=== PATIENT | female | born 1935 | race Two or more races ===

== ENCOUNTER 2016-05-26 08:29 | Emergency (ER) | payer MEDICAID ==
[~2016-05-26] VITALS: Ht 160 cm; Wt 67.1 kg
[2016-05-26 08:42] VITALS: BP 134/84
[2016-05-26] MEDS ORDERED: LIDOCAINE 1%-EPI 1:100,000 20 ML VIAL ONE (09:02)
[2016-05-26] MEDS ORDERED: LIDOCAINE 1%-EPI 1:100,000 20 ML VIAL TP ONE (09:30)
[2016-05-26] MEDS ORDERED: TDAP [DIPH/PERTUSSIS/TET] 0.5 ML VIAL IM ONE ×2 (09:41→10:00)
== END 2016-05-26 09:53 | disposition home or self-care (01) ==
LOC: ER 08:31
DX: S61.211A Laceration without foreign body of left index finger without damage to nail, initial encounter (principal); K21.9 Gastro-esophageal reflux disease without esophagitis; I10 Essential (primary) hypertension; E11.9 Type 2 diabetes mellitus without complications; W26.0XXA Contact with knife, initial encounter; Y93.89 Activity, other specified; Y92.000 Kitchen of unspecified non-institutional (private) residence as the place of occurrence of the external cause; Y99.9 Unspecified external cause status
CPT/HCPCS: 90715; A4606; A6402; A6403; J3490; Z7610

== ENCOUNTER 2019-03-15 09:00 | Inpatient (IN) | payer MEDICARE, MEDICAID ==
[~2019-03-15] VITALS: Ht 154.9 cm; Wt 63.5 kg
--- NOTE | 2019-03-15 09:10 | NUR ---
L SIDED CHEST PAIN AND R ARM PAIN SINCE LAST NIGHT. PATIENT A/OX4, SON AT BEDSIDE FOR TRANSLATION, CHANGED INTO GOWN, ATTACHED TO THE ASSOCIATE BIOLOGICAL SALES. NO DISTRESS NOTED.
--- NOTE | 2019-03-15 09:15 | NUR ---
DR. LAMB AT BEDSIDE FOR EVAL.
[2019-03-15 09:27] LABS: BASOPHILS # (AUTO) 0.1 /CMM (0.0-0.2); BASOPHILS % (AUTO) 0.9 % (0.0-2.0); EOSINOPHILS % (AUTO) 1.9 % (0.0-6.0); HEMATOCRIT 33 % (33-45); LYMPHOCYTES # (AUTO) 0.8 /CMM (0.8-4.8); LYMPHOCYTES % (AUTO) 10.8 % (20.0-44.0); MEAN CORPUSCULAR HGB CONC 34 g/dl (31.0-36.0); MEAN CORPUSCULAR VOLUME 92 fL (82-100); MONOCYTES # (AUTO) 0.4 /CMM (0.1-1.30); MONOCYTES % (AUTO) 5.4 % (2.0-12.0); NEUTROPHILS # (AUTO) 6.2 /CMM (1.8-8.9); PLATELET COUNT (AUTO) 191 /CMM (150-450); RED BLOOD CELL COUNT(AUTO) 3.56 MIL/uL (4.0-5.2); WHITE BLOOD COUNT (AUTO) 7.6 K/uL (4.3-11.0)
[2019-03-15 09:36] LABS: CALCIUM, SERUM 8.7 mg/dL (8.5-10.1); CARBON DIOXIDE 26 mmol/L (21-32); CHLORIDE 102 mmol/L (98-107); CREATININE 0.9 mg/dL (0.6-1.3); GLUCOSE 249 mg/dL (74-106); POTASSIUM 4.2 mmol/L (3.5-5.1); SODIUM SERUM 139 mmol/L (136-145); UREA NITROGEN, BLOOD 15 mg/dL (7-18)
[2019-03-15 09:42] LABS: ALANINE AMINOTRANSFERASE 90 U/L (12-78); ALBUMIN 3.2 g/dL (3.4-5.0); ALKALINE PHOSPHATASE 118 U/L (46-116); ASPARTATE AMINOTRANSFERASE 37 U/L (15-37); BILIRUBIN,DIRECT 0.3 mg/dL (0.0-0.2); BILIRUBIN,TOTAL 1.1 mg/dL (0.2-1.0)
--- NOTE | 2019-03-15 10:33 | NUR ---
PAGED DR. PINTO
--- NOTE | 2019-03-15 10:48 | NUR ---
GOT BED 108
--- NOTE | 2019-03-15 10:51 | NUR ---
DR. PINTO AT BEDSIDE.
[2019-03-15] MEDS ORDERED: NITROGLYCERIN PACKET 1 GM PACKET ONE (10:59)
[2019-03-15] MEDS ORDERED: ASPIRIN 325 MG TABLET ONE (11:00)
[2019-03-15] MEDS ORDERED: NITROGLYCERIN PACKET 1 GM PACKET TD ONE (11:00)
[2019-03-15] MEDS ORDERED: ASPIRIN 325 MG TABLET PO ONE ×2 (11:00→20:30)
[2019-03-15] MEDS ORDERED: METO-358 PO (11:19)
[2019-03-15] MEDS ORDERED: METF-441 PO (11:19)
--- NOTE | 2019-03-15 11:42 | NUR ---
report given to luis enrique sharp for baldemar pt will be transported to 1st floor
[2019-03-15] MEDS ORDERED: BLOOD SUGAR DIAGNOSTIC 1 EACH STRIP IN SCH ×2 (12:00)
[2019-03-15] MEDS ORDERED: METOPROLOL SUCCINATE 50 MG TAB.SR.24H PO SCH (12:00)
[2019-03-15] MEDS ORDERED: *INSULIN REGULAR(HUMULIN R)HUM 100 UNIT/ML VIAL SQ PRN (12:00)
[2019-03-15] MEDS ORDERED: BLOOD SUGAR DIAGNOSTIC 1 EACH STRIP VI SCH (12:00)
[2019-03-15] MEDS ORDERED: hydrALAZINE HCL IV 20 MG VIAL IV PRN (12:00)
[2019-03-15] MEDS ORDERED: SIMVASTATIN 40 MG TABLET PO SCH (12:00)
[2019-03-15] MEDS ORDERED: DEXTROSE 50%-WATER 50 ML DISP.SYRIN IV PRN (12:00)
--- NOTE | 2019-03-15 12:00 | NUR ---
PREPARER MAKING DEPARTMENT NOTES OPENING PATIENT A/O TIMES 4 PATIENT SPEAKS A LITTLE CAYMAN ISLANDER . FAMILY IS AT BEDSIDE. SON AND DAUGHTER. PATIENT IS ON 2 L OXYGEN . PATIENT IS SATURATING WELL. AT TIMES PATIENT DOES HAVE ANXIETY WHEN PATIENT IS STRESS AND DOES NOT KNOW WHATS GOING ON GOING ON. SHE STARTS TO PANIC. PATIENT SKIN IS IN TACT. NO SKIN ISSUES. PATIENT DOES HAVE LFA 18 INTACT AND PATENT . BED LOCKED AND LOWEST POSITION CALL LIGHT WITH IN REACH. ALL SAFETY PRECAUTIONS IMPLEMENTED PER HOSPITAL PROTOCOL
[2019-03-15 12:28] LABS: BASOPHILS % (AUTO) 0.5 % (0.0-2.0); EOSINOPHILS % (AUTO) 0.3 % (0.0-6.0); HEMATOCRIT 33 % (33-45); HEMOGLOBIN 11.2 g/dL (11.5-14.8); LYMPHOCYTES # (AUTO) 0.6 /CMM (0.8-4.8); LYMPHOCYTES % (AUTO) 6.4 % (20.0-44.0); MEAN CORPUSCULAR HGB CONC 34 g/dl (31.0-36.0); MEAN CORPUSCULAR VOLUME 92 fL (82-100); MONOCYTES # (AUTO) 0.3 /CMM (0.1-1.30); NEUTROPHILS # (AUTO) 8.2 /CMM (1.8-8.9); NEUTROPHILS % (AUTO) 89.8 % (43.0-81.0); PLATELET COUNT (AUTO) 188 /CMM (150-450); RED BLOOD CELL COUNT(AUTO) 3.63 MIL/uL (4.0-5.2); WHITE BLOOD COUNT (AUTO) 9.1 K/uL (4.3-11.0)
--- NOTE | 2019-03-15 12:31 | NUR ---
pt transported to [facility]
[2019-03-15 12:53] LABS: ALBUMIN 3.1 g/dL (3.4-5.0); BILIRUBIN,TOTAL 1.2 mg/dL (0.2-1.0); CALCIUM, SERUM 8.4 mg/dL (8.5-10.1); CREATININE 0.9 mg/dL (0.6-1.3); POTASSIUM 4.2 mmol/L (3.5-5.1); THYROID STIMULATING HORMONE 2.561 uIU/mL (0.358-3.74); TOTAL PROTEIN, SERUM 6.9 g/dL (6.4-8.2)
--- NOTE | 2019-03-15 13:30 | NUR ---
BURR MACHINE OPERATOR NOTES PATIENT LOOKS LIKE SHE HAD A PANIC ATTACK WHEN OVER EXERTED PATIENT BREATHING WILL INCREASE AND ALMOST LOOKS LIKE PATIENT LOSSES CONSCIOUSNESS. SHE WAS JUST MOVING UP ON THE BED.
--- NOTE | 2019-03-15 14:00 | NUR ---
PLATE MAKER ZINC NOTES PT, OT, SPEECH , LABS SAW PATIENT .
[2019-03-15] MEDS: METFORMIN 850 MG TABLET PO SCH (14:25)
--- NOTE | 2019-03-15 15:14 | NUR ---
COVERING MACHINE OPERATOR HELPER NOTES NEURO SAW PATIENT
--- NOTE | 2019-03-15 15:35 | NUR ---
clinical services assistant consult requested for stroke. Pt is an 83 year old female admitted to [facility] for chest pain. Pt is alert and oriented x 3 (person, place, situation). Pts daughter was at bedside and also participated in the visit providing some translation when necessary; pt primarily speaks Setswana. [place] [address] [place] [address]; [phone]. Pt states she has a big family consisting of four children and twenty grandchildren. Per pt, family is very close and they are a source of great support for her. Per pt family, pt is very active and independent; pt continues to be able to drive and does her own grocery shopping and housekeeping. Pt receives SSI benefits and a pension. PAM offered information for in-home supportive services referrals and pt family was receptive. PAM provided pt with information and an application to [facility] IHSS program through the Department of Senior Pharmacy Technician [Address: [facility] [address], [place] [address]; ]. Pt denies suicidal and homicidal ideation at this time. Pt denies symptoms of depression at this time. PHQ-9 assessment completed. No further mental health social worker needed at this time. SW will remain available should any needs arise.
[2019-03-15] MEDS ORDERED: IV NS 0.9% 250 ML IV ONE (18:08)
[2019-03-15] MEDS ORDERED: CT SWABBABLE VALVE TRANS SET 1 EA INFUS.SET MC ONE (18:08)
[2019-03-15] MEDS ORDERED: IOHEXOL-350 100 ML VIAL IV ONE (18:08)
[2019-03-15] MEDS: BLOOD SUGAR DIAGNOSTIC 1 EACH STRIP IN SCH ×2 (18:40→21:57)
--- NOTE | 2019-03-15 19:30 | NUR ---
RN OPENING NOTES: PATIENT AWAKE AND VERBALLY RESPONSIVE. AAOX4. FAMILY AT BEDSIDE. NO RESPIRATORY DISTRESS. ON O2 AT 2LPM VIA NC, TOLERATING WELL. NO C/O PAIN AT THIS TIME. SAFETY PRECAUTIONS IMPLEMENTED. WILL DO NIHSS ORDERED. NO S/S OF ACTIVE STROKE AT THIS TIME. ALL NEEDS WILL BE ATTENDED TO. ON WEIGH MACHINE OPERATOR SHOWING SR, HR 80s. CALL LIGHT PLACED WITHIN REACH. WILL CONT. TO MONITOR.
[2019-03-15 20:00] VITALS: BP 156/72
--- NOTE | 2019-03-15 20:15 | NUR ---
RN NOTE: DR. LEW AT BEDSIDE. MD INFORMED PATIENT AND FAMILY OF HEAD CT RESULT. NEW ORDERS NOTED AND CARRIED OUT.
[2019-03-15] MEDS ORDERED: LORAZEPAM 0.5 MG TABLET PO ONE (20:30)
[2019-03-15] MEDS: ATORVASTATIN 40 MG TABLET PO SCH (21:43)
[2019-03-15] MEDS ORDERED: SIMVASTATIN 20 MG TABLET PO SCH (22:00)
--- NOTE | 2019-03-15 22:55 | NUR ---
RN NOTE: CHECKED BS = 197. PATIENT REFUSING SLIDING SCALE INSULIN COVERAGE. DR. LEW MADE AWARE WITH NO NEW ORDERS.
[2019-03-16] VITALS: BP 121/56
--- NOTE | 2019-03-16 02:00 | NUR ---
RN NOTE: FREQUENT NEUROLOGICAL ASSESSMENT DONE. PATIENT REMAINS ALERT AND ORIENTED. NO CHANGES IN BASELINE LOC. PERRLA. EQUAL BILATERAL HAND ASTHMA EDUCATOR. NO FACIAL DROOPING. WILL CONT. TO MONITOR.
[2019-03-16 04:00] VITALS: BP 118/54
--- NOTE | 2019-03-16 06:00 | NUR ---
RN NOTE: PATIENT REFUSING PERINEAL CARE AND LINEN CHANGE. OFFERED 3X, RISKS AND BENEFITS, STILL REFUSED AT THIS TIME. PATIENT STATES SHE JUST WANTS TO SLEEP.
--- NOTE | 2019-03-16 06:30 | NUR ---
RN NOTE: BED ALARM WENT OFF. RN AND WARP STARTER WENT TO THE ROOM IMMEDIATELY. PATIENT WANTS TO GO TO THE RESTROOM. ASSISTED PATIENT TO THE RESTROOM FOR SAFETY. PATIENT VOIDED X 1 WITH CLEAR YELLOW URINE. PERICARE PROVIDED. ASSISTED BACK TO BED SAFELY.
[2019-03-16 06:45] LABS: BASOPHILS % (AUTO) 0.6 % (0.0-2.0); EOSINOPHILS % (AUTO) 1.1 % (0.0-6.0); HEMATOCRIT 30 % (33-45); HEMOGLOBIN 10.4 g/dL (11.5-14.8); LYMPHOCYTES # (AUTO) 0.8 /CMM (0.8-4.8); MEAN CORPUSCULAR HGB CONC 34 g/dl (31.0-36.0); MEAN CORPUSCULAR VOLUME 92 fL (82-100); MONOCYTES # (AUTO) 0.4 /CMM (0.1-1.30); MONOCYTES % (AUTO) 6.3 % (2.0-12.0); NEUTROPHILS # (AUTO) 5.2 /CMM (1.8-8.9); PLATELET COUNT (AUTO) 187 /CMM (150-450); RED BLOOD CELL COUNT(AUTO) 3.29 MIL/uL (4.0-5.2); WHITE BLOOD COUNT (AUTO) 6.5 K/uL (4.3-11.0)
--- NOTE | 2019-03-16 07:00 | NUR ---
RN CLOSING NOTE: PATIENT AWAKE AND VERBALLY RESPONSIVE. NO SOB. NO CHEST PAIN. SAFETY PRECAUTIONS HAVE BEEN IMPLEMENTED. BED LOCKED AND IN LOWEST POSITION, BED ALARM ON, SIDE RAILS UP X 2. ENDORSED TO AM SHIFT NURSE FOR CONTINUITY OF CARE.
--- NOTE | 2019-03-16 07:00 | NUR ---
INFORMATION SECURITY SYSTEMS INSTRUCTOR NOTES PATIENT IS A/O X4 PATIENT IS IN 2L AIR AND SATURATING WELL AT 97% PATIENT SHOWS NO SIGNS OF ACUTE RESPIRATORY DISTRESS. NO SOB. NO PAIN. PATIENT HAS LFA 18 # PATENT AND SATURATING WELL. PATIENT IS COOPERATIVE WITH CARE NEURO CHECKS . PATENT CAN SWALLOW WATER. PATIENT FACE IS SYMMETRICAL, EYES ARE EVEN . PATIENT STILL HAS RIGHT ARM WEAKNESS .PATIENT SPEECH IS STILL CLEAR. BED LOCKED AND LOWEST POSITION CALL LIGHT WITH IN REACH. ALL SAFETY MEASURE IMPLEMENTED PER HOSPITAL POLICY .
[2019-03-16 07:14] LABS: CALCIUM, SERUM 8.3 mg/dL (8.5-10.1); CREATININE 0.9 mg/dL (0.6-1.3)
--- NOTE | 2019-03-16 07:37 | NUR ---
TEXTED DR. SPENCER FOR MRI APPROVAL.
[2019-03-16 08:00] VITALS: BP_SYST 118; BP_SYST 131; BP_DIAS 54; BP_DIAS 68
--- NOTE | 2019-03-16 09:40 | NUR ---
PATENT COUNSEL NOTES PER DR ZEB LEON Q24 SQ , CALL NEURO , PT
[2019-03-16] MEDS: ENOXAPARIN SODIUM 40 MG/0.4 ML DISP.SYRIN SQ SCH (09:55)
[2019-03-16] MEDS: METFORMIN 850 MG TABLET PO SCH (09:55)
[2019-03-16] MEDS: ASPIRIN EC 325 MG TABLET.DR PO SCH (09:55)
[2019-03-16] MEDS: BLOOD SUGAR DIAGNOSTIC 1 EACH STRIP IN SCH ×4 (09:56→20:51)
--- NOTE | 2019-03-16 10:26 | NUR ---
SECURITY PROGRAM MANAGER NOTES PATIENT BS 238 PATIENT REFUSED INSULE " STATE THAT METFORMIN IS OKAY
--- NOTE | 2019-03-16 14:22 | NUR ---
UPPER TRIMMER NOTES PATIENT BS 186 - PATIENT REFUSES INSULIN
[2019-03-16 16:00] VITALS: BP 155/70
--- NOTE | 2019-03-16 19:16 | NUR ---
ELASTIC CUTTER NOTES PATIENT A/O X4 PATIENT IS ON 2 AIR AND SATURING WELL AT 96%. PATIENT SHOWS NO SIGNS OF ACUTE RESPIRATORY DISTRESS. NO SOB. PATINT COMPLAINS OF RIGHT ARM PAIN BUT GOES AWAY AFTER A FEW MINS. PATIENT HAS LFA 18 # PATENT AND INTACT. PATIENT IS COOPERATIVE WITH CARE. NUEROCHECK DONE Q3 HOURS. PATIENT SPEECH IS STILL CLEAR . AND RIGHT ARM WEAKNESS. FAMILY AT BED SIDE. BED LOCKED AND LOWEST POSITION . CALL LIGHT WITH IN REACH. ALL SAFE MEASURES IMPLEMENTED PER HOSPITAL PROTOCOL
--- NOTE | 2019-03-16 19:23 | NUR ---
TELE/RN OPENING NOTES RECEIVED PATIENT IN BED, AWAKE, ALERT X3, ABLE TO VERBALIZE AND RESPOND, FAMILY INVOLVED, DISCUSSED PLAN OF CARE. SON MARY REPORTED THAT HE WANTS TO F/U REGARDING DISCHARGE PLAN AND CONTINUITY OF CARE ONCE MEDICALLY CLEARED PREFERED TO BE DC TO REHAB AT [facility] PHONE NO [phone]. PATIENT RESPIRATIONS EVEN AND UNLABORED, ON OXYGEN VIA NC. BED LOCKED, CALL LIGHTS WITHIN REACH, BED ALARM ON. RECEIVED ENDORSEMENT FROM AM RN FOR LACI.
[2019-03-16 20:00] VITALS: BP 161/75
[2019-03-16] MEDS: ATORVASTATIN 40 MG TABLET PO SCH (20:53)
--- NOTE | 2019-03-16 22:00 | NUR ---
TELE/RN NOTES FAMILY DISCUSSED CONCERN AND MADE AWARE REGARDING PATIENT CONDITION, MONITORED AND WITH MD ORDER FOR TELE MONITORING, ALSO MEDICATION TO PREVENT STROKE, AND ON OXYGEN AT 2LITER, WITH FALL RISK PREVENTIVE MEASURES, BED ALARM ON. CALL LIGHTS WITHIN REACH.WILL MONITOR.
--- NOTE | 2019-03-16 23:53 | NUR ---
RN NOTES PATIENT GETTING OUT OF BED WITHOUT CALLINGX2 EVEN AFTER DEMONSTRATING ON HOW TO USE CALL LIGHT. VERY RESTLESS. PRIMARY RN SPOKE TO MD WITH ORDERS. INFORMED CAR REPAIRER HELPER, MARSHA OF SITTER ORDER; STATED NO STAFF AND WANTS TO PUT RESTRAINT FOR NOW. EXPLAINED TO HIM WILL LET PRIMARY RN CALL FAMILY FIRST ABOUT ATIVAN ORDER AND RESTRAINT. 847 CAR REPAIRER HELPER CALLED BACK THAT HE SPOKE TO MD AND OKAYED RESTRAINT OVERNIGHT. PRIMARY RN, ADONAY CONTRERAS AWARE Addendum: 03/17/19 at 0019 by RIVERA FARLEY RN 0015 PER PRIMARY RN;PATIENT PULLED OUT IV AND FAMILY REFUSED BOTH ATIVAN AND RESTRAINT; CAR REPAIRER HELPER NOTIFIED. WILL CONTINUE TO MONITOR AND HAVE STAFF ALTERNATE IN WATCHING PATIENT FOR PATIENT SAFETY . BED ALARM ON. CALL LIGHT WITHIN REACH.
--- NOTE | 2019-03-16 23:58 | NUR ---
TELE/RN NOTES MD CONTACTED AND INFORMED REGARDING PATIENT INABILITY TO RELAX, FALL PRECAUTION, LACK OF SAFETY AWARENESS PATIENT REMOVING HER NASAL CANULA AND PULLED OUT IV , PATIENT OXYGENATION LEVEL CHECK WNL BUT BREATHING FAST, ATIVAN 0.5 MG IVP EVERY 6 HRS PRN ORDERED, WITH SITTER. TO CALL FAMILY
[2019-03-17] VITALS: BP_SYST 115; BP_SYST 127; BP_DIAS 55; BP_DIAS 69
[2019-03-17] MEDS ORDERED: LORAZEPAM INJ 2 MG/ML VIAL IV PRN
--- NOTE | 2019-03-17 00:12 | NUR ---
TELE/RN NOTES FAMILY WAS INFORMED ABOUT MD ORDER FOR ATIVAN , RESTRAIN AND REFUSE TO HAVE IT BUT AGREED FOR A SITTER.
[2019-03-17 04:00] VITALS: BP 127/95
--- NOTE | 2019-03-17 06:13 | NUR ---
tele/rn notes PATIENT TO REINSERT IV , REQUESTED TO HAVE IT LATER IN AM.
--- NOTE | 2019-03-17 06:16 | NUR ---
TELE/RN CLOSING NOTES PATIENT SLEPT INTERMITENTLY, REQUIRE FREQUENT MONITORING PATIENT GET UP OF THE BED WITHOUT CALLING FOR ASSISTANCE OR USING THE CALL LIGHTS, ON OXYGEN AT 2LITER VIA NC, CAN AMBULATE WITH ASSIST. REPORTED TO MD REGARDING PATIENT CONCERNS, FAMILY WAS MADE AWARE AND WITH ORDER FOR A SITTER, WILL ENDORSE TO AM RN FOR LACI. BED LOCKED, CALL LIGHTS WITHIN REACH. WILL ENDORSE TO AM RN FOR LACI.
[2019-03-17 08:00] VITALS: BP 173/78
--- NOTE | 2019-03-17 08:00 | NUR ---
TELE1/RN AM SHIFT INITIAL NOTES RECEIVED AT AWAKE SITTING IN BED, PT A/O X 4, DENIES ANY SYMPTOMS. NO ACUTE DISTRESS OR CHANGE OF CONDITION NOTED, ON 2L O2 VIA N/C SATURATING @ 98%, LUNG SOUNDS CLEAR, RESPIRATIONS EVEN & UNLABORED. ON TELE WITH SINUS RHYTHM WITH INVERTED T-WAVE, HR 86. PT HAS ON IV ACCESS. ACCOMPANIED PT TO BATHROOM NOTED SOB ON EXERTION. PT ACCOMPANIED BACK TO BED, COMFORTABLE. SCHEDULED AM MEDS TO BE GIVEN. CL WITHIN REACHED AND SAFETY MAINTAINED. ON GOING MONITORING.
[2019-03-17] MEDS: ASPIRIN EC 325 MG TABLET.DR PO SCH (08:17)
[2019-03-17] MEDS: METFORMIN 850 MG TABLET PO SCH (08:18)
[2019-03-17] MEDS: ENOXAPARIN SODIUM 40 MG/0.4 ML DISP.SYRIN SQ SCH (08:18)
[2019-03-17] MEDS: BLOOD SUGAR DIAGNOSTIC 1 EACH STRIP IN SCH ×4 (08:25→22:55)
--- NOTE | 2019-03-17 10:24 | NUR ---
TELE1/RN ROUNDS - DR. JACOBSEN PT BEING SEEN & EXAMINED BY DR. JACOBSEN WITH FAMILY MEMBERS AT BEDSIDE. NO NEW ORDER RECEIVED AT THIS TIME.
--- NOTE | 2019-03-17 11:40 | NUR ---
TELE1/RN PHYSICAL THERAPY PT NOTED WITH 90% O2 SATURATION ON ROOM AIR. PT BEING SEEN BY PHYSICAL THERAPIST. WALKING WITH WALKER ON 2L O2 VIA N/C. MONITORING. Addendum: 03/17/19 at 1332 by PIERO KIRBY RN ADDENDUM: PT WALKED 20O FEET WITH CONTACT GUARD, FRONT WHEEL WALKER. TOLERATED THERAPY.
[2019-03-17 12:00] VITALS: BP 141/64
[2019-03-17] MEDS: CLOPIDOGREL BISULFATE 75 MG TABLET PO SCH (12:53)
--- NOTE | 2019-03-17 13:00 | NUR ---
TELE1/RN INCENTIVE SPIROMETER RESPIRATORY THERAPIST AT BEDSIDE WITH PTS' SON AT BEDSIDE TO INTERPRET, TAUGHT PT HOW TO USE THE INCENTIVE SPIROMETER, PT VERBALIZED UNDERSTANDING AND SHOWED RETURN DEMONSTRATION. NO CHANGE OF CONDITION. MONITORING CONTINUED.
[2019-03-17 16:00] VITALS: BP 141/62
[2019-03-17] MEDS: FUROSEMIDE 40 MG/4 ML VIAL IV SCH (16:25)
[2019-03-17] MEDS: INSULIN REGULAR, HUMAN 100 UNIT/ML 3 ML VIAL SQ PRN (19:04)
--- NOTE | 2019-03-17 19:15 | NUR ---
TELE1/RN AM SHIFT END NOTES BS RE-CHECK (253) PT'S FAMILY REFUSED INSULIN EARLIER, AFTER EXPLAINING THAT RN FOLLOW THE SLIDING SCALE ORDER, PT'S DAUGHTER AGREED TO ADMINISTER 9 UNIT OF INSULIN, NO S/S OF HYPERGLYCEMIA. EARLIER IN THE DAY, INSULIN COVERAGE WAS REFUSED BY PT'S FAMILY, SAID SHE IS ALREADY ON GLUCOPHAGE, PT SHOWS NO SIGNS OF HYPERGLYCEMIA. ALL NEEDS MET. PT'S FAMILY VERY DEMANDING THROUGHOUT THE SHIFT. PT ENDORSED TO PM NURSE TO CONTINUE CARE. CL WITHIN REACHED AND SAFETY MAINTAINED.
--- NOTE | 2019-03-17 19:35 | NUR ---
PM SHIFT INITIAL NOTES RECEIVED PATIENT IN BED AWAKE/ALERT X4, DENIES ANY PAIN. NO ACUTE DISTRESS OR CHANGE OF CONDITION NOTED, ON 2L O2 VIA N/C, TOLERATING WELL, RESPIRATIONS EVEN & UNLABORED. ON TELE WITH SINUS RHYTHM WITH INVERTED T-WAVE, HR 87. PATIENT HAS RFA IV ACCESS SL. FAMILY AT BED SIDE, FAMILY HELPED PATIENT TO THE BATHROOM AND BACK, NO SOB NOTED AT HIS TIME. PATIENT IS COMFORTABLE. CALL LIGHT WITHIN REACH, BED LOCKED/LOW POSITION. WILL CONTINUE TO MONITOR.
[2019-03-17 20:00] VITALS: BP 158/71
[2019-03-17] MEDS: ATORVASTATIN 40 MG TABLET PO SCH (22:57)
[2019-03-18] VITALS: BP 137/62
[2019-03-18 04:00] VITALS: BP 141/59
--- NOTE | 2019-03-18 06:47 | NUR ---
PM RN CLOSING NOTES, PATIENT IN BED SLEEPING AND AROUSAL. ALERT/ORIENTED X4, NO SIGH OF PAIN. NO ACUTE DISTRESS OR CHANGE OF CONDITION NOTED, ON 2L O2 VIA N/C, TOLERATING WELL, RESPIRATIONS EVEN & UNLABORED. ON TELE WITH SINUS RHYTHM WITH INVERTED T-WAVE, HR 80s. PATIENT HAS RFA IV ACCESS SL. NO SOB NOTED AT HIS TIME. PATIENT IS COMFORTABLE. CALL LIGHT WITHIN REACH, BED LOCKED/LOW POSITION. WILL ENDORSE THE PATIENT TO AM RN FOR LACI.
--- NOTE | 2019-03-18 07:35 | NUR ---
RN OPENING NOTES Patient A/O X 4. Verbally responsive, and able to make needs known. No acute distress noted. Blood sugar checked. With IV on RFA #22. Reminded pt to use the call light button whenever she need assistance. Bed locked , in lowest position, call light within reach. Will continue to monitor.
[2019-03-18] MEDS: BLOOD SUGAR DIAGNOSTIC 1 EACH STRIP IN SCH ×2 (07:36→12:21)
[2019-03-18 08:00] VITALS: BP 145/70
--- NOTE | 2019-03-18 08:00 | NUR ---
RN NOTE PER NOC SHIFT REPORT, PATIENT AND FAMILY IS REFUSING INSULIN COVERAGE IF BS <250 PATIENT ALSO REFUSED TO EAT HER BREAKFAST, SHE SAID HER DAUGHTER WILL BRING SOME TODAY
[2019-03-18] MEDS: FUROSEMIDE 40 MG/4 ML VIAL IV SCH (08:15)
[2019-03-18] MEDS: ENOXAPARIN SODIUM 40 MG/0.4 ML DISP.SYRIN SQ SCH ×2 (08:16→09:00)
[2019-03-18] MEDS: METFORMIN 850 MG TABLET PO SCH (08:17)
[2019-03-18] MEDS: CLOPIDOGREL BISULFATE 75 MG TABLET PO SCH (08:17)
[2019-03-18] MEDS ORDERED: LOSARTAN POTASSIUM 50 MG TABLET PO SCH (09:00)
[2019-03-18] MEDS ORDERED: ASPIRIN EC 325 MG TABLET.DR PO SCH (09:00)
[2019-03-18] MEDS ORDERED: ASPIRIN 325 MG TABLET PO SCH (09:00)
[2019-03-18] MEDS ORDERED: ASPIRIN EC 81 MG TABLET.DR PO SCH (09:00)
[2019-03-18] MEDS ORDERED: NITROGLYCERIN 0.4 MG/TAB BOTTLE SL ONE (11:30)
[2019-03-18] MEDS ORDERED: METOPROLOL TARTRATE INJ 5 MG/5 ML AMPUL IVP PRN (11:30)
--- NOTE | 2019-03-18 11:34 | NUR ---
Non admin of nitroglycerine and metoprolol (prn) under Dr Meyers order. Correction made on the ordering physician. Should have been under Dr Turner instead of Dr Meyers.
[2019-03-18 12:00] VITALS: BP_SYST 129; BP_SYST 144; BP_DIAS 53; BP_DIAS 63
--- NOTE | 2019-03-18 12:00 | NUR ---
RN NOTES Please disregard the first 1200 vital signs documentation. It's error. Refer to the second 1200 documentation.Family at bedside. Blood sugar was 200mg/dl and was given 3 units of insulin.
--- NOTE | 2019-03-18 12:09 | NUR ---
RN NOTE DID A BUBBLE STUDY AT BEDSIDE WITH DR ROMERO AND GEAR LAPPER LEWIS. FAMILY AT BEDSIDE
[2019-03-18] MEDS: INSULIN REGULAR, HUMAN 100 UNIT/ML 3 ML VIAL SQ PRN (12:23)
--- NOTE | 2019-03-18 15:30 | NUR ---
RN NOTE CALLED [facility], REPORT GIVEN TO JULIA MCKEON. PER CM, LITIGATION SECRETARY TIME SHOULD HAVE BEEN AT 1500. WAITING FOR AMBULANCE
--- NOTE | 2019-03-18 15:47 | NUR ---
RN NOTE DAUGHTER REQUESTED TO CHECK BS BEFORE LEAVING, BS 211. NO COVERAGE GIVEN
--- NOTE | 2019-03-18 15:59 | NUR ---
RN NOTES Pt family is in bedside. Refused to have the Enoxaparin to be administer. Med returned to [facility].
--- NOTE | 2019-03-18 16:03 | NUR ---
MEDICAL RECORDS DIRECTOR NOTES Pt A/Ox 4. Verbally responsive and able to make needs known. Denies any pain or discomfort. Vital signs checked and stable. Pt family is at bedside. Picked up by ambulance personnel 1602. Medically stable. Skin is intact. Iv line and tele monitor removed.
== END 2019-03-18 16:20 | DRG 65 ==
LOC: ER 09:08 → TELE1 11:29
PROVIDERS: ADMIT Internal Medicine; ATTEND Internal Medicine
DX: I63.9 Cerebral infarction, unspecified (principal); G81.91 Hemiplegia, unspecified affecting right dominant side; I31.3 Pericardial effusion (noninflammatory); J90 Pleural effusion, not elsewhere classified; K21.9 Gastro-esophageal reflux disease without esophagitis; D63.8 Anemia in other chronic diseases classified elsewhere; H54.7 Unspecified visual loss; I10 Essential (primary) hypertension; I25.10 Atherosclerotic heart disease of native coronary artery without angina pectoris; I70.0 Atherosclerosis of aorta; Z79.84 Long term (current) use of oral hypoglycemic drugs; R40.2362 Coma scale, best motor response, obeys commands, at arrival to emergency department; R40.2142 Coma scale, eyes open, spontaneous, at arrival to emergency department; R40.2252 Coma scale, best verbal response, oriented, at arrival to emergency department; R29.700 NIHSS score 0; I08.1 Rheumatic disorders of both mitral and tricuspid valves; I25.2 Old myocardial infarction; Z82.49 Family history of ischemic heart disease and other diseases of the circulatory system
CPT/HCPCS: 36415; 70450-TC; 70496-TC; 70498-TC; 71045-TC; 80048-TC; 80053-TC; 80061-TC; 80076-TC; 82962-TC; 83880; 84443-TC; 84484-TC; 85025-TC; 85652-TC; 85730-TC; 87081-TC; 92611-TC; 93307-TC; 93880-TC; 97110-TC; 97112-TC; 97116-TC; 97530-TC; 97535-TC; G0378; J1650; J1815; J1940; J7030; J7050; Q9967

== ENCOUNTER 2022-03-09 11:44 | Inpatient (IN) | payer MEDICARE, MEDICAID ==
[~2022-03-09] VITALS: Ht 160 cm; Wt 56.2 kg
[2022-03-09] VITALS (12 sets, daily range): BP systolic 106–147; BP diastolic 50–97
[~2022-03-09 11:44] MED LIST: METF-441 PO; METO-358 PO
--- NOTE | 2022-03-09 12:00 | NUR ---
GLF [address] THE WAY TO THE BATHROOM,WORSENING LEFT HIP AND LEG PAIN
--- NOTE | 2022-03-09 12:17 | NUR ---
established iv line 20 g left ac
--- NOTE | 2022-03-09 12:25 | NUR ---
hooked to monitor with 3 leads. o2 applied at 3L/min o2sat at 97%
[2022-03-09] MEDS ORDERED: ACETAMINOPHEN 325 MG TABLET PO ONE (12:30)
--- NOTE | 2022-03-09 12:33 | NUR ---
jamil glynn initiated by RN and , didnt work
--- NOTE | 2022-03-09 12:40 | NUR ---
cardiac pads placed as ordered
[2022-03-09 12:53] LABS: BASOPHILS % (AUTO) 0.5 % (0.0-2.0); EOSINOPHILS % (AUTO) 2.3 % (0.0-6.0); HEMATOCRIT 36 % (33-45); HEMOGLOBIN 12.4 g/dL (11.5-14.8); LYMPHOCYTES # (AUTO) 0.7 K/uL (0.8-4.8); LYMPHOCYTES % (AUTO) 7.4 % (20.0-44.0); MEAN CORPUSCULAR HGB CONC 34 g/dl (31.0-36.0); MEAN CORPUSCULAR VOLUME 88 fL (82-100); MONOCYTES # (AUTO) 0.4 K/uL (0.1-1.30); MONOCYTES % (AUTO) 4.1 % (2.0-12.0); NEUTROPHILS # (AUTO) 8.4 K/uL (1.8-8.9); NEUTROPHILS % (AUTO) 85.7 % (43.0-81.0); PLATELET COUNT (AUTO) 203 K/uL (150-450); RED BLOOD CELL COUNT(AUTO) 4.12 MIL/uL (4.0-5.2); WHITE BLOOD COUNT (AUTO) 9.8 K/uL (4.3-11.0)
[2022-03-09] MEDS ORDERED: IV NS 0.9% 1,000 ML BAG IV ONE (13:00)
--- NOTE | 2022-03-09 13:00 | NUR ---
adenosine - 6 mg TIV given as ordered
--- NOTE | 2022-03-09 13:03 | NUR ---
adenosine - 12mg given tiv as ordered
--- NOTE | 2022-03-09 13:05 | NUR ---
adenosine - 12mg given tiv as ordered
--- NOTE | 2022-03-09 13:10 | NUR ---
DR. CAPPS SPEAKING WITH DR. OLEA.
--- NOTE | 2022-03-09 13:11 | NUR ---
MOVE SHEET SUBMITTED.
[2022-03-09] MEDS ORDERED: ADENOSINE 6 MG/2 ML VIAL ONE (13:16)
[2022-03-09 13:25] LABS: ALANINE AMINOTRANSFERASE 18 U/L (12-78); ALBUMIN 3.4 g/dL (3.4-5.0); ALKALINE PHOSPHATASE 100 U/L (46-116); ASPARTATE AMINOTRANSFERASE 20 U/L (15-37); BILIRUBIN,DIRECT 0.4 mg/dL (0.0-0.2); BILIRUBIN,TOTAL 1.1 mg/dL (0.2-1.0); CALCIUM, SERUM 8.5 mg/dL (8.5-10.1); CARBON DIOXIDE 24 mmol/L (21-32); CHLORIDE 101 mmol/L (98-107); GLUCOSE 268 mg/dL (74-106); POTASSIUM 3.6 mmol/L (3.5-5.1); SODIUM SERUM 133 mmol/L (136-145); UREA NITROGEN, BLOOD 13 mg/dL (7-18)
[2022-03-09] MEDS ORDERED: ADENOSINE 6 MG/2 ML VIAL IVP ONE ×3 (13:30→14:30)
[2022-03-09] MEDS ORDERED: LORAZEPAM INJ 2 MG/ML VIAL ONE ×3 (13:33→19:06)
--- NOTE | 2022-03-09 13:37 | NUR ---
2mg ativan tiv given
[2022-03-09] MEDS ORDERED: DILTIAZEM HCL 25 MG IV ONE ×2 (13:40→23:34)
--- NOTE | 2022-03-09 13:53 | NUR ---
cardioversion initiated at 100joules once. pt back to sinus rhythm 108bpm
[2022-03-09] MEDS ORDERED: DILTIAZEM HCL 50 MG IV IV ONE (14:00)
[2022-03-09] MEDS ORDERED: LORAZEPAM INJ 2 MG/ML VIAL IV ONE (14:00)
[2022-03-09] MEDS ORDERED: LORAZEPAM INJ 2 MG/ML VIAL IV PRN (14:30)
[2022-03-09] MEDS ORDERED: DEXTROSE 50%-WATER 50 ML DISP.SYRIN IV PRN (14:30)
[2022-03-09] MEDS ORDERED: ACETAMINOPHEN 325 MG TABLET PO PRN (14:30)
[2022-03-09] MEDS ORDERED: ONDANSETRON HCL/PF 4 MG/2 ML VIAL IV PRN (14:30)
[2022-03-09] MEDS ORDERED: ASPI-1420 PO (14:33)
[2022-03-09] MEDS ORDERED: METO50TA16 PO (14:33)
--- NOTE | 2022-03-09 15:20 | NUR ---
cardizem drip started at the rate of 5mg/ml per protocol to be titrated to effect .
[2022-03-09] MEDS: DILTIAZEM HCL IV 125 MG in IV NS 0.9% 100 ML IV PRN ×2 (15:25→23:43)
[2022-03-09] MEDS: BLOOD SUGAR DIAGNOSTIC 1 EACH STRIP VI SCH ×2 (17:30→21:18)
--- NOTE | 2022-03-09 17:49 | NUR ---
room 253
--- NOTE | 2022-03-09 18:25 | NUR ---
report given to daniel sharp
[2022-03-09] MEDS: LORAZEPAM INJ 2 MG/ML VIAL IV PRN (19:28)
--- NOTE | 2022-03-09 19:29 | NUR ---
moved the patient to inpatient room safely per acls protocol .
[2022-03-09] MEDS: METOPROLOL TARTRATE 25 MG TABLET PO SCH (20:50)
--- NOTE | 2022-03-09 20:52 | NUR ---
RN NOTE 192 ADMITTED PT WITH DX OF SVT, PT LETHARGIC, CONFUSED. ON 3L O2 VIA NC. NO SIGNS OF DISTRESS NOTED. TELE MONITOR SHOWS UNCONTROLLED AFIB.RECEIVED PT ON CARDIZEM DRIP AT 15MG/HR FROM ER. PT WITH DUE METOPROLOL, DR CAPPS NOTIFIED, TO GIVE ONE TIME METOPROLOL 5MG IVP AND TO HOLD METOPROLOL PO.
[2022-03-09] MEDS ORDERED: METOPROLOL TARTRATE INJ 5 MG/5 ML AMPUL IVP ONE (21:00)
--- NOTE | 2022-03-09 23:00 | NUR ---
RN NOTE SEBASTIAN CATHETER INSERTED ORDERED, UA SAMPLE COLLECTED. SENT TO LAB.
[2022-03-09] MEDS: *INSULIN REGULAR(HUMULIN R)HUM 100 UNIT/ML VIAL SQ PRN (23:14)
[2022-03-09] MEDS ORDERED: DILTIAZEM HCL 50 MG IV ONE (23:33)
[2022-03-10] VITALS (44 sets, daily range): BP systolic 71–151; BP diastolic 18–97
[2022-03-10 01:09] LABS: BILIRUBIN,URINE NEGATIVE (NEGATIVE); COLOR,URINE YELLOW (YELLOW); LEUKOCYTE ESTERASE ,URINE 2+ (NEGATIVE); NITRITE, URINE NEGATIVE (NEGATIVE); PROTEIN,URINE 1+ mg/dl (NEGATIVE); UGLUCOSE 1+ mg/dL (NEGATIVE)
[2022-03-10 01:10] LABS: BACTERIA,URINE Few /HPF (None Seen); SQUAMOUS EPITHELIAL CELL,UR Few /HPF (None Seen)
--- NOTE | 2022-03-10 06:52 | NUR ---
RN NOTE PT SLEEPING, AROUSES EASILY. RESPONDS WELL, PT DENIES PAIN AT THIS TIME. TOLERATING 4L O2 VIA NC, O2SAT AT 97%. NOT IN ANY DISTRESS. PT CONTINUE ON CARDIZEM DRIP AT 10MG/HR, AFIB CONTROLLED ON TELE MONITOR. SEBASTIAN CATH DRAINING URINE BY GRAVITY. MRSA NARES SWAB DONE SENT TO LAB. ALL SAFETY MEASURES REMAIN IN PLACE. WILL ENDORSE TO AM SHIFT NURSE FOR LACI.
[2022-03-10 07:12] LABS: ALANINE AMINOTRANSFERASE 9 U/L (12-78); ALBUMIN 2.6 g/dL (3.4-5.0); ALKALINE PHOSPHATASE 80 U/L (46-116); ASPARTATE AMINOTRANSFERASE 13 U/L (15-37); CALCIUM, SERUM 7.6 mg/dL (8.5-10.1); CARBON DIOXIDE 25 mmol/L (21-32); CHLORIDE 105 mmol/L (98-107); CREATININE 0.9 mg/dL (0.6-1.3); GLUCOSE 244 mg/dL (74-106); POTASSIUM 3.7 mmol/L (3.5-5.1); SODIUM SERUM 137 mmol/L (136-145); TOTAL PROTEIN, SERUM 6.5 g/dL (6.4-8.2); UREA NITROGEN, BLOOD 11 mg/dL (7-18)
--- NOTE | 2022-03-10 07:17 | NUR ---
RN OPENING NOTES RECEIVED PATIENT REPORT FROM NIGHTSHIFT RN. PATIENT IN BED ASLEEP BUT AROUSES EASILY. BEDSIDE MONITOR SHOWING A-FIB. PATIENT ON CARDIZEM DRIP ORDERED. SEBASTIAN CATHETER DRAINING OUTPUT. SKIN INTACT. IV ACCESS ON LEFT ANTECUBITAL 20 GAUGE FLUSHING EASILY WITH NO RESISTANCE. SAFETY MEASURES IMPLEMENTED, CALL LIGHT WITHIN REACH. WILL CONTINUE PLAN OF CARE AND ANTICIPATE NEEDS.
[2022-03-10 07:25] LABS: BASOPHILS % (AUTO) 0.6 % (0.0-2.0); EOSINOPHILS % (AUTO) 4.6 % (0.0-6.0); HEMATOCRIT 33 % (33-45); HEMOGLOBIN 11.1 g/dL (11.5-14.8); LYMPHOCYTES # (AUTO) 0.7 K/uL (0.8-4.8); LYMPHOCYTES % (AUTO) 9.7 % (20.0-44.0); MEAN CORPUSCULAR HGB CONC 34 g/dl (31.0-36.0); MEAN CORPUSCULAR VOLUME 89 fL (82-100); MONOCYTES # (AUTO) 0.4 K/uL (0.1-1.30); MONOCYTES % (AUTO) 5.4 % (2.0-12.0); NEUTROPHILS # (AUTO) 5.5 K/uL (1.8-8.9); NEUTROPHILS % (AUTO) 79.7 % (43.0-81.0); PLATELET COUNT (AUTO) 182 K/uL (150-450)
[2022-03-10 07:53] LABS: CHOLESTEROL 120 mg/dL (<200); HDL CHOLESTEROL 36 mg/dL (40-60); LDL 70 mg/dL (0-99); THYROID STIMULATING HORMONE 1.221 uIU/mL (0.358-3.74); TRIGLYCERIDES 85 mg/dL (30-150)
[2022-03-10] MEDS: BLOOD SUGAR DIAGNOSTIC 1 EACH STRIP VI SCH ×4 (08:10→22:07)
[2022-03-10] MEDS ORDERED: DILTIAZEM HCL IV 125 MG in IV NS 0.9% 100 ML IV PRN (09:00)
[2022-03-10] MEDS: METOPROLOL TARTRATE 25 MG TABLET PO SCH ×2 (09:13→16:37)
--- NOTE | 2022-03-10 09:20 | NUR ---
PATIENTS DAUGHTER BROUGHT FOOD FROM [employer]. PROVIDED EDUCATION ON MONITORING BLOOD SUGAR AND THE IMPORTANCE OF ADHERING TO A CONSISTENT CARB DIET, GIVEN THE PATIENTS HISTORY OF DIABETES. PATIENTS DAUGHTER RESPONDED WITH "YEAH YEAH OF COURSE." WILL CONTINUE PLAN OF CARE AND ANTICIPATE PATIENTS NEEDS.
[2022-03-10] MEDS ORDERED: DIGOXIN INJ 0.5 MG/2 ML AMPUL IV ONE (10:00)
[2022-03-10] MEDS: APIXABAN 2.5 MG TABLET PO SCH ×2 (10:01→16:36)
[2022-03-10] MEDS: CEFTRIAXONE 1 G in IV D5W 50 ML IV SCH (10:26)
[2022-03-10] MEDS: MORPHINE SULFATE INJ 2 MG/ML DISP.SYRIN IV PRN ×2 (10:27→16:45)
[2022-03-10] MEDS: INSULIN GLARGINE, 100 UNIT/ML CARTRIDGE SQ SCH (10:29)
[2022-03-10] MEDS ORDERED: IV NS 0.9% 250 ML IV ONE (10:30)
--- NOTE | 2022-03-10 11:47 | NUR ---
PATIENT REFUSED 1200 ACCUCHECK. PATIENT STATES TO COME BACK WHEN SHE IS DONE SLEEPING.
--- NOTE | 2022-03-10 12:38 | NUR ---
HAND OFF REPORT GIVEN TO TURNER DUMONT FOR CONTINUATION OF CARE.
[2022-03-10] MEDS: INSULIN REGULAR, HUMAN 100 UNIT/ML 3 ML VIAL SQ PRN (13:18)
[2022-03-10] MEDS: IPRATROPIUM NEB FS 0.5 MG/2.5 ML AMPUL.NEB NEB SCH ×2 (15:30→23:26)
[2022-03-10] MEDS ORDERED: AMIODARONE 150 MG in IV D5W 100 ML IV ONE (20:00)
--- NOTE | 2022-03-10 20:00 | NUR ---
RN NOTE PT AWAKE, ALERT WITH EPISODE OF CONFUSION. ON 3L O2 VIA NC. PAIN ON MOVEMENT. SEEN BY DR VILLANUEVA. WITH NEW ORDERS. WILL START AMIODARONE DRIP FOR AFIB. WILL CONTINUE TO MONITOR. ALL SAFETY MEASURES IN PLACE.
[2022-03-10] MEDS: AMIODARONE 450 MG in IV D5W 241 ML IV PRN (20:33)
[2022-03-10] MEDS: *INSULIN REGULAR(HUMULIN R)HUM 100 UNIT/ML VIAL SQ PRN (22:08)
[2022-03-11] VITALS (18 sets, daily range): BP systolic 107–157; BP diastolic 48–95
[2022-03-11 04:58] LABS: BASOPHILS % (AUTO) 0.4 % (0.0-2.0); EOSINOPHILS % (AUTO) 3.1 % (0.0-6.0); HEMATOCRIT 34 % (33-45); HEMOGLOBIN 11.3 g/dL (11.5-14.8); LYMPHOCYTES # (AUTO) 0.8 K/uL (0.8-4.8); LYMPHOCYTES % (AUTO) 9.6 % (20.0-44.0); MEAN CORPUSCULAR HGB CONC 34 g/dl (31.0-36.0); MEAN CORPUSCULAR VOLUME 88 fL (82-100); MONOCYTES # (AUTO) 0.5 K/uL (0.1-1.30); MONOCYTES % (AUTO) 6.2 % (2.0-12.0); NEUTROPHILS # (AUTO) 6.4 K/uL (1.8-8.9); NEUTROPHILS % (AUTO) 80.7 % (43.0-81.0); PLATELET COUNT (AUTO) 193 K/uL (150-450); RED BLOOD CELL COUNT(AUTO) 3.82 MIL/uL (4.0-5.2)
[2022-03-11 05:09] LABS: CREATININE 0.9 mg/dL (0.6-1.3); MAGNESIUM 2.1 mg/dL (1.8-2.4); POTASSIUM 3.7 mmol/L (3.5-5.1)
[2022-03-11] MEDS: AMIODARONE 450 MG in IV D5W 241 ML IV PRN (05:35)
--- NOTE | 2022-03-11 07:11 | NUR ---
RN NOTE PT SLEEPING WELL. AROUSES EASILY. PT WITH EPISODES OF CONFUSION AND PULLING OUT TUBINGS AND IV. NEW IV LINE INSERTED ON LFA 20G, GOOD BLOOD RETURN, CONTINUE ON AMIODARONE DRIP RUNNING AT 16.67 ML/HR, NO SIGNS OF INFILTRATION. ENDORSED TO SOPHIA FOR LACI.
--- NOTE | 2022-03-11 07:30 | NUR ---
OPENING NOTE: REPORT RECEIVED FROM MIKE DUMONT. LABS AND ORDERS REVIEWED DURING REPORT. PT CURRENTLY ON AMIODARONE GTT AT 0.5 MG/MIN DUE TO BE STOPPED AT 3 TONIGHT PER PROTOCOL. PT APPEARS TO BE CONFUSED. PT IS REFUSING TO HAVE ACCUCHECK DONE UNTIL CAREGIVER ARRIVES THIS AM. PT CHECKED ON HOURLY AND PRN BY NURSING STAFF.
[2022-03-11] MEDS: IPRATROPIUM NEB FS 0.5 MG/2.5 ML AMPUL.NEB NEB SCH ×3 (07:35→23:17)
[2022-03-11] MEDS: INSULIN REGULAR, HUMAN 100 UNIT/ML 3 ML VIAL SQ PRN ×2 (09:11→12:10)
[2022-03-11] MEDS: BLOOD SUGAR DIAGNOSTIC 1 EACH STRIP VI SCH ×4 (09:11→22:12)
[2022-03-11] MEDS: METOPROLOL TARTRATE 25 MG TABLET PO SCH ×2 (09:12→17:03)
[2022-03-11] MEDS: APIXABAN 2.5 MG TABLET PO SCH ×2 (09:14→17:04)
[2022-03-11] MEDS: INSULIN GLARGINE, 100 UNIT/ML CARTRIDGE SQ SCH (09:14)
--- NOTE | 2022-03-11 09:15 | NUR ---
[facility] BLOOD GLUCOSE IS 177, PT'S DAUGHTER RAFAEL REFUSED FOR PATIENT TO HAVE SLIDING SCALE, OK'D FOR PATIENT TO HAVE LANTUS ONLY.
[2022-03-11] MEDS ORDERED: FUROSEMIDE 20 MG/2 ML VIAL IV ONE (09:30)
[2022-03-11] MEDS: CEFTRIAXONE 1 G in IV D5W 50 ML IV SCH (10:39)
[2022-03-11] MEDS ORDERED: BISACODYL (5 MG) 5 MG TABLET.DR PO ONE (12:00)
[2022-03-11] MEDS ORDERED: POLYETHYLENE GLYCOL 3350 17 GM POWD.PACK PO PRN (12:00)
[2022-03-11] MEDS ORDERED: IV NS 0.9% 250 ML IV PRN (15:30)
--- NOTE | 2022-03-11 18:45 | NUR ---
AT 1800 WHILE CLEANING UP BM PT'S IV ACCIDENTLY CAME OUT. NUTRITION SERVICES ASSOCIATE ATTEMPTED TO PUT IN NEW IV BUT PT'S DAUGHTER AT BEDSIDE DIDN'T WANT A NEW IV BECAUSE OF PT'S BRUISES ON BILAT ARMS. RN AND NUTRITION SERVICES ASSOCIATE EXPLAINED TO PATIENTS DAUGHTER THAT PT IS ON BLOOD THINNERS AND WILL BRUISE EASILY. NUTRITION SERVICES ASSOCIATE OFFERED FOR A MIDLINE TO BE INSERTED INSTEAD OF A PERIPHERAL IV SITE, SHE EXPLAINED TO THE FAMILY WHAT A MIDLINE IS AND THAT THE MIDLINE RN WILL BE HERE AROUND 1999. PT'S DAUGHTER AGREED TO HAVE A MIDLINE PLACED. PT WAS TRANSPORTED TO ROOM 309-2 VIA BED USING ACLS PROTOCOL WITH RN AT BEDSIDE ON 3L NASAL CANNULA O2. ALL BELONGINGS AND MEDICATIONS SENT WITH PATIENT. UPDATE GIVEN TO FERMIN DUMONT, PT SETTLED IN ROOM.
--- NOTE | 2022-03-11 19:23 | NUR ---
"RECEIVED REPORT FROM JULIA PARNELL AT 1800. PATIENT WAS TRANSFERRED VIA BED TO [place] [address] AT 1840. VS BP 144/74 | WI 102 | RR 18 | T 98.6F | ON 02 AT 3 LPM VIA NC, SATURATING 100%. PATIENT HAS NO IV ACCESS WHEN BROUGHT UP. PER PARMJIT MIDLINE HAS BEEN ARRANGED AT [address] ON THE TELEMONITOR. FAMILY AT BEDSIDE. SAFETY MEASURES MAINTAINED. BED IN LOWEST POSITION, BRAKES LOCKED. SIDE RAILS UP X2. CALL LIGHT WITHIN REACH. ENDORSED TO JULIA SERRANO."
[2022-03-11] MEDS ORDERED: AMIODARONE HCL 200 MG TABLET PO SCH (19:30)
--- NOTE | 2022-03-11 19:30 | NUR ---
noc rn opening received patient sitting in bed, alert but luxembourgish speaking only and according to family patient is baseline confused. 2 family members at bedside. no s/s of apparent distress on 3lpm of o2 via nc. denies pain at this time. reading a-fib on the tele monitor, controlled. patient has no iv access at this time-- as endorsed-- patient is for midline insertion tonight. Leon cath draining clear, pam urine. call light within reach. safety in place. will continue with patient's plan of care.
[2022-03-11] MEDS: AMIODARONE HCL 200 MG TABLET PO SCH (20:11)
[2022-03-11] MEDS: LORAZEPAM INJ 2 MG/ML VIAL IV PRN (20:50)
[2022-03-11] MEDS: *INSULIN REGULAR(HUMULIN R)HUM 100 UNIT/ML VIAL SQ PRN (22:15)
[2022-03-12] VITALS: BP 146/85
[2022-03-12 04:00] VITALS: BP 178/86
[2022-03-12 05:49] LABS: BASOPHILS # (AUTO) 0.1 K/uL (0.0-0.2); BASOPHILS % (AUTO) 1.3 % (0.0-2.0); EOSINOPHILS % (AUTO) 3.4 % (0.0-6.0); HEMATOCRIT 30 % (33-45); HEMOGLOBIN 10.4 g/dL (11.5-14.8); LYMPHOCYTES # (AUTO) 0.8 K/uL (0.8-4.8); LYMPHOCYTES % (AUTO) 9.8 % (20.0-44.0); MEAN CORPUSCULAR HGB CONC 34 g/dl (31.0-36.0); MEAN CORPUSCULAR VOLUME 88 fL (82-100); MONOCYTES # (AUTO) 0.5 K/uL (0.1-1.30); MONOCYTES % (AUTO) 6.9 % (2.0-12.0); NEUTROPHILS # (AUTO) 6.2 K/uL (1.8-8.9); NEUTROPHILS % (AUTO) 78.6 % (43.0-81.0); PLATELET COUNT (AUTO) 185 K/uL (150-450); RED BLOOD CELL COUNT(AUTO) 3.44 MIL/uL (4.0-5.2); WHITE BLOOD COUNT (AUTO) 7.9 K/uL (4.3-11.0)
[2022-03-12 06:12] LABS: ALBUMIN 2.3 g/dL (3.4-5.0); BILIRUBIN,TOTAL 0.8 mg/dL (0.2-1.0); CALCIUM, SERUM 7.7 mg/dL (8.5-10.1); CREATININE 0.8 mg/dL (0.6-1.3); POTASSIUM 3.3 mmol/L (3.5-5.1); TOTAL PROTEIN, SERUM 6.3 g/dL (6.4-8.2)
[2022-03-12] MEDS: BLOOD SUGAR DIAGNOSTIC 1 EACH STRIP VI SCH ×4 (06:43→22:19)
[2022-03-12] MEDS: INSULIN REGULAR, HUMAN 100 UNIT/ML 3 ML VIAL SQ PRN (06:44)
--- NOTE | 2022-03-12 06:57 | NUR ---
mayelin rn closing note patient in bed, with eyes closed. easy to arouse. no s/s of apparent distress on room air at this time. denies pain, cabezas cath drained 600 ml of urine output. now with rt. arm midline saline lock. all needs attended. all scheduled medications administered. safety kept in place the whole shift. will endorse to morning shift rn for continuity of patient care. Addendum: 03/12/22 at 0704 by ZACH GUZMAN RN mayelin rn closing note patient in bed, with eyes closed. easy to arouse. no s/s of apparent distress on room air at this time. denies pain, cabezas cath drained 600 ml of urine output. reading afib on the tele monitor. now with rt. arm midline saline lock. all needs attended. all scheduled medications administered. safety kept in place the whole shift. will endorse to morning shift rn for continuity of patient care.
[2022-03-12 07:00] VITALS: BP 148/77
[2022-03-12] MEDS: IPRATROPIUM NEB FS 0.5 MG/2.5 ML AMPUL.NEB NEB SCH ×3 (07:52→23:30)
[2022-03-12 08:00] VITALS: BP 148/77
[2022-03-12] MEDS: AMIODARONE HCL 200 MG TABLET PO SCH ×2 (09:06→20:41)
[2022-03-12] MEDS: METOPROLOL TARTRATE 25 MG TABLET PO SCH ×2 (09:06→17:44)
[2022-03-12] MEDS: POLYETHYLENE GLYCOL 3350 17 GM POWD.PACK PO SCH (09:07)
[2022-03-12] MEDS: APIXABAN 2.5 MG TABLET PO SCH ×2 (09:11→17:50)
[2022-03-12] MEDS ORDERED: POTASSIUM CHLORIDE 20 MEQ TAB.PRT.SR PO SCH (10:00)
[2022-03-12] MEDS: GLUCERNA SHAKE 237 ML CAN PO SCH ×2 (10:30→17:45)
[2022-03-12] MEDS: ACETAMINOPHEN ES 500 MG TABLET PO SCH ×2 (10:30→17:45)
[2022-03-12] MEDS: INSULIN GLARGINE, 100 UNIT/ML CARTRIDGE SQ SCH (10:42)
[2022-03-12] MEDS: PAROXETINE HCL 10 MG TABLET PO SCH (11:08)
[2022-03-12 12:00] VITALS: BP 113/54
[2022-03-12] MEDS: CEFTRIAXONE 1 G in IV D5W 50 ML IV SCH (13:18)
[2022-03-12] MEDS: LORAZEPAM INJ 2 MG/ML VIAL IV PRN ×2 (15:46→21:27)
[2022-03-12] MEDS: DOCUSATE SODIUM 100 MG CAPSULE PO SCH (17:45)
[2022-03-12 20:00] VITALS: BP 118/46
[2022-03-12] MEDS: DONEPEZIL 5 MG TABLET PO SCH (21:45)
[2022-03-12] MEDS: SENNOSIDES 8.6 MG TABLET PO SCH (21:45)
[2022-03-12] MEDS: *INSULIN REGULAR(HUMULIN R)HUM 100 UNIT/ML VIAL SQ PRN (22:24)
[2022-03-13] VITALS: BP 119/52
[2022-03-13 04:00] VITALS: BP 98/64
--- NOTE | 2022-03-13 04:35 | NUR ---
Ending Notes: Bedrest repositions herself in the bed Alert and orientated 2 X@ confused at times found Midline in her bed from the right upper arm started 2g left hand pvc monitor on the floor placed back on the patient SR HR 83 this 12 hours cabezas drainage clear yellow
[2022-03-13] MEDS: BLOOD SUGAR DIAGNOSTIC 1 EACH STRIP VI SCH ×4 (06:27→23:08)
[2022-03-13 07:00] VITALS: BP 173/98
[2022-03-13] MEDS: IPRATROPIUM NEB FS 0.5 MG/2.5 ML AMPUL.NEB NEB SCH ×4 (07:16→23:38)
[2022-03-13 07:45] LABS: BASOPHILS # (AUTO) 0.1 K/uL (0.0-0.2); BASOPHILS % (AUTO) 0.8 % (0.0-2.0); EOSINOPHILS % (AUTO) 5.8 % (0.0-6.0); HEMATOCRIT 34 % (33-45); HEMOGLOBIN 11.5 g/dL (11.5-14.8); LYMPHOCYTES # (AUTO) 0.8 K/uL (0.8-4.8); LYMPHOCYTES % (AUTO) 11.6 % (20.0-44.0); MEAN CORPUSCULAR HGB CONC 34 g/dl (31.0-36.0); MEAN CORPUSCULAR VOLUME 87 fL (82-100); MONOCYTES # (AUTO) 0.5 K/uL (0.1-1.30); MONOCYTES % (AUTO) 6.9 % (2.0-12.0); NEUTROPHILS # (AUTO) 5.3 K/uL (1.8-8.9); NEUTROPHILS % (AUTO) 74.9 % (43.0-81.0); PLATELET COUNT (AUTO) 218 K/uL (150-450); RED BLOOD CELL COUNT(AUTO) 3.85 MIL/uL (4.0-5.2); WHITE BLOOD COUNT (AUTO) 7.1 K/uL (4.3-11.0)
[2022-03-13 08:00] VITALS: BP 173/98
[2022-03-13 08:28] LABS: CALCIUM, SERUM 8.5 mg/dL (8.5-10.1); CREATININE 0.9 mg/dL (0.6-1.3); MAGNESIUM 2.3 mg/dL (1.8-2.4); POTASSIUM 3.5 mmol/L (3.5-5.1)
[2022-03-13] MEDS: METOPROLOL TARTRATE 25 MG TABLET PO SCH ×2 (08:47→17:19)
[2022-03-13] MEDS: DOCUSATE SODIUM 100 MG CAPSULE PO SCH ×2 (08:48→17:19)
[2022-03-13] MEDS: AMIODARONE HCL 200 MG TABLET PO SCH ×2 (08:48→19:04)
[2022-03-13] MEDS: GLUCERNA SHAKE 237 ML CAN PO SCH ×2 (08:49→17:00)
[2022-03-13] MEDS: PAROXETINE HCL 10 MG TABLET PO SCH (08:49)
[2022-03-13] MEDS: POLYETHYLENE GLYCOL 3350 17 GM POWD.PACK PO SCH (08:49)
[2022-03-13] MEDS: APIXABAN 2.5 MG TABLET PO SCH ×2 (08:54→17:21)
[2022-03-13] MEDS: ACETAMINOPHEN ES 500 MG TABLET PO SCH ×2 (09:05→17:18)
[2022-03-13] MEDS: INSULIN GLARGINE, 100 UNIT/ML CARTRIDGE SQ SCH (09:09)
[2022-03-13] MEDS: CEFTRIAXONE 1 G in IV D5W 50 ML IV SCH (09:10)
[2022-03-13] MEDS: METFORMIN 500 MG TABLET PO SCH ×2 (12:02→17:18)
[2022-03-13] MEDS: HYDROCODONE/APAP 5/325MG TABLET PO PRN (12:03)
[2022-03-13 16:00] VITALS: BP 127/65
--- NOTE | 2022-03-13 16:52 | NUR ---
CHIEF OPERATOR HYDROFORMER NOTE RECEIVED REPORT FORM JULIA FERRARI. PATIENT IN STABLE CONDITION WITH FAMILY AT BEDSIDE. WILL CONTINUE WITH PLAN OF CARE.
--- NOTE | 2022-03-13 19:10 | NUR ---
MS RN NOTE PT AWAKE, ALERT X 1 WITH EPISODE OF CONFUSION. ON ROOM AIR WITH NO SIGNS OF DISTRESS. PAIN ON MOVEMENT. WITH NEW ORDERS. WITH IV ACCESS ONT HTE LEFT HAND G22, PATENT AND INTACT. SAFETY MEASURES ENSURED WITH BED ON LOWEST, LOCKED POSITION, CALL LIGHT WITHIN REACH AT ALL TIMES. ENDORSED TO NEXT SHIFT FOR CONTINUITY OF CARE.
--- NOTE | 2022-03-13 19:40 | NUR ---
RIG MECHANIC OPENING NOTE RECEIVED PT AWAKE, ALERT X 1 WITH EPISODE OF CONFUSION. ON ROOM AIR WITH NO SIGNS OF DISTRESS. NO C/O PAIN AT THIS TIME. WITH IV ACCESS TO LEFT HAND G22, PATENT AND INTACT. SAFETY MEASURES MAINTAINED: BED IN LOWEST, LOCKED POSITION, CALL LIGHT WITHIN REACH, SR UP X2. WILL CONTINUE TO MONITOR PT.
[2022-03-13 20:00] VITALS: BP 101/74
[2022-03-13] MEDS: SENNOSIDES 8.6 MG TABLET PO SCH (23:07)
[2022-03-13] MEDS: DONEPEZIL 5 MG TABLET PO SCH (23:07)
[2022-03-13] MEDS: *INSULIN REGULAR(HUMULIN R)HUM 100 UNIT/ML VIAL SQ PRN (23:11)
[2022-03-14] VITALS: BP 102/71
[2022-03-14] MEDS: LORAZEPAM INJ 2 MG/ML VIAL IV PRN ×2 (01:51→22:00)
[2022-03-14 04:00] VITALS: BP 105/68
[2022-03-14 07:00] VITALS: BP 181/96
--- NOTE | 2022-03-14 07:05 | NUR ---
PRIVATE WATCHMAN CLOSING NOTE PT LEFT IN BED, IN STABLE CONDITION. WILL ENDORSE TO AM SHIFT NURSE FOR LACI.
--- NOTE | 2022-03-14 07:19 | NUR ---
MS RN OPENING NOTE RECEIVED PT AWAKE, ALERT X 2-1 WITH EPISODE OF CONFUSION/ FORGETFULNESS. ON ROOM AIR WITH NO SIGNS OF DISTRESS. NO COMPLAIN OF PAIN AT THIS TIME. WITH IV ACCESS ON THE LEFT HAND G22, PATENT AND INTACT. WITH SEBASTIAN CATHETER TO URINE BAG WITH LIGHT YELLOW URINE DRAINING TO URINE BAG WITH LIGHT YELLOW URINE. SAFETY MEASURES ENSURED WITH BED ON LOWEST, LOCKED POSITION, CALL LIGHT WITHIN REACH AT ALL TIMES. WILL CONTINUE WITH PLAN OF CARE.
[2022-03-14] MEDS: INSULIN REGULAR, HUMAN 100 UNIT/ML 3 ML VIAL SQ PRN (07:43)
[2022-03-14] MEDS: GLUCERNA SHAKE 237 ML CAN PO SCH ×2 (08:00→17:00)
[2022-03-14] MEDS: IPRATROPIUM NEB FS 0.5 MG/2.5 ML AMPUL.NEB NEB SCH ×3 (08:16→23:24)
[2022-03-14] MEDS: BLOOD SUGAR DIAGNOSTIC 1 EACH STRIP VI SCH ×4 (08:42→21:13)
[2022-03-14] MEDS: METOPROLOL TARTRATE 25 MG TABLET PO SCH ×2 (09:06→16:29)
[2022-03-14] MEDS: METFORMIN 500 MG TABLET PO SCH ×2 (09:07→16:24)
[2022-03-14] MEDS: ACETAMINOPHEN ES 500 MG TABLET PO SCH ×2 (09:07→16:21)
[2022-03-14] MEDS: PAROXETINE HCL 10 MG TABLET PO SCH (09:07)
[2022-03-14] MEDS: AMIODARONE HCL 200 MG TABLET PO SCH ×2 (09:07→21:12)
[2022-03-14] MEDS: POLYETHYLENE GLYCOL 3350 17 GM POWD.PACK PO SCH (09:08)
[2022-03-14] MEDS: APIXABAN 2.5 MG TABLET PO SCH ×2 (09:08→16:23)
[2022-03-14] MEDS: DOCUSATE SODIUM 100 MG CAPSULE PO SCH ×2 (09:14→16:21)
[2022-03-14] MEDS: INSULIN GLARGINE, 100 UNIT/ML CARTRIDGE SQ SCH (10:47)
[2022-03-14 12:00] VITALS: BP 135/76
[2022-03-14] MEDS: HYDROCODONE/APAP 5/325MG TABLET PO PRN (12:48)
[2022-03-14] MEDS: LOSARTAN POTASSIUM 25 MG TABLET PO SCH (13:42)
[2022-03-14] MEDS ORDERED: BISACODYL SUPP (10 MG) 10 MG/SUPP.RECT SUPP.RECT RC ONE (14:00)
[2022-03-14 16:00] VITALS: BP 141/85
[2022-03-14] MEDS: *INSULIN REGULAR(HUMULIN R)HUM 100 UNIT/ML VIAL SQ PRN ×2 (18:22→21:13)
--- NOTE | 2022-03-14 18:59 | NUR ---
DECORATING CONSULTANT NOTE Received patient alert, awake and oriented X2 with episodes of confusion and forgetfulness. On room air with no signs of distress.On telemetry monitoring with current reading of 98 afib. No pain and discomfort at this time. IV access on the left hand G22, patent and intact. Patient on cabezas catheter and was able to have a bowel movement. Safety measures given with bed on lowest. locked position, call light within reach. in stable condition. Endorsed to next shift for continuity of care.
--- NOTE | 2022-03-14 19:57 | NUR ---
CLEANING AND WASHING EQUIPMENT OPERATOR OPENING NOTE Received patient alert, awake and oriented X2 with episodes of confusion and forgetfulness. On room air with no signs of distress.On telemetry monitoring with current reading of 98 afib. No pain and discomfort at this time. IV access on the left hand G22, patent and intact. Patient on cabezas catheter and was able to have a bowel movement. Safety measures given with bed on lowest. locked position, call light within reach. in stable condition. pt family member at bedside at this time.
--- NOTE | 2022-03-14 20:36 | NUR ---
rn note PT KEEPS REFUSING VITAL SIGNS AND BP MEDS EXPLAINED RISK AND BENEFITS X3 CALLED RAFAEL ON THE PHONE SPOKE WITH MOTHER WILL TRY TO SEE IF THE PT IS AGREEABLE NOW.
[2022-03-14] MEDS: DONEPEZIL 5 MG TABLET PO SCH (21:12)
[2022-03-14] MEDS: SENNOSIDES 8.6 MG TABLET PO SCH (21:12)
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
[2022-03-14 22:00] VITALS: BP 134/64
--- NOTE | 2022-03-14 22:08 | NUR ---
RN NOTE PRN ATIVAN GIVEN PT VERY AGITATED SCREAMING. TRYING TO GET UP ALMOST PULLED OUT ALL LINES. TOLERATED WELL. WILL CONTINUE TO MONITOR.
[2022-03-15 04:00] VITALS: BP 157/76
[2022-03-15] MEDS: INSULIN REGULAR, HUMAN 100 UNIT/ML 3 ML VIAL SQ PRN ×2 (06:07→12:10)
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
[2022-03-15] MEDS: BLOOD SUGAR DIAGNOSTIC 1 EACH STRIP VI SCH ×2 (06:55→12:08)
--- NOTE | 2022-03-15 07:27 | NUR ---
REAL ESTATE EXECUTIVE ASSISTANT OPENING NOTE RECEIVED PT ASLEEP IN BED, EASILY AROUSED. PT A/O X2-3, WITH EPISODES OF CONFUSION AND FORGETFUL. REORIENTED AND REDIRECTED PT NEEDED. ON ROOM AIR, TOLERATING WELL. NO SOB NOTED. NOT IN ANY SIGN OF RESPIRATORY DISTRESS. ON TELE NURSE GENERAL DUTY WITH CURRENT READING OF AFIB CONTROLLED, HR 80. NO C/O CARDIAC DISTRESS VOICED OUT AT THIS TIME. IV ACCESS IN LEFT HAND G#22 INTACT AND PATENT. SEBASTIAN CATH IN PLACE AND DRAINING WELL. SAFETY MEASURES IN PLACE: BED IN LOWEST AND LOCKED POSITION, SIDE RAILS UPX2, BED ALARM ON, AND CALL LIGHT WITHIN REACH. WILL CONTINUE TO MONITOR PT.
[2022-03-15] MEDS: IPRATROPIUM NEB FS 0.5 MG/2.5 ML AMPUL.NEB NEB SCH (07:35)
[2022-03-15 08:00] VITALS: BP 152/81
[2022-03-15] MEDS: AMIODARONE HCL 200 MG TABLET PO SCH (08:10)
[2022-03-15] MEDS: GLUCERNA SHAKE 237 ML CAN PO SCH (08:27)
[2022-03-15] MEDS: DOCUSATE SODIUM 100 MG CAPSULE PO SCH (08:51)
[2022-03-15] MEDS: ACETAMINOPHEN ES 500 MG TABLET PO SCH (08:51)
[2022-03-15] MEDS: PAROXETINE HCL 10 MG TABLET PO SCH (08:52)
[2022-03-15] MEDS: METOPROLOL TARTRATE 25 MG TABLET PO SCH (08:52)
[2022-03-15] MEDS: LOSARTAN POTASSIUM 25 MG TABLET PO SCH (08:52)
[2022-03-15] MEDS: APIXABAN 2.5 MG TABLET PO SCH (08:53)
[2022-03-15] MEDS: METFORMIN 500 MG TABLET PO SCH (08:53)
[2022-03-15] MEDS: POLYETHYLENE GLYCOL 3350 17 GM POWD.PACK PO SCH (08:54)
[2022-03-15] MEDS: INSULIN GLARGINE, 100 UNIT/ML CARTRIDGE SQ SCH ×2 (08:54→09:29)
[2022-03-15 12:00] VITALS: BP 116/55
[2022-03-15] MEDS: HYDROCODONE/APAP 5/325MG TABLET PO PRN (14:27)
--- NOTE | 2022-03-15 14:29 | NUR ---
RN NOTE PT C/O LOWER BACK PAIN WITH PAIN SCALE LEVEL OF 7/10 AND REQUESTED FOR PAIN MEDICATION. NORCO 5/325MG 1 TAB PO GIVEN ORDERED PRN Q6HRS FOR PAIN. WILL MONITOR AND REASSESS PT.
--- NOTE | 2022-03-15 15:35 | NUR ---
MEDICAL CLERICAL ASSISTANT NOTE PT DISCHARGED TO [facility] FOR REHAB. PT A/O X2-3, WITH EPISODES OF CONFUSION AND FORGETFULNESS. REORIENTED AND REDIRECTED NEEDED. ON ROOM AIR, TOLERATING WELL WITH SPO2 AT 95%. NO SOB NOTED. NOT IN ANY SIGN OF RESPIRATORY DISTRESS. VITAL SIGNS TAKEN, STABLE, AND RECORDED. PT REFUSED BODY ASSESSMENTS AND PHOTOGRAPHS OF SKIN ISSUES. ALL BELONGINGS ACCOUNTED FOR. DISCHARGED INSTRUCTIONS AND HEALTH TEACHINGS EXPLAINED TO PT AND PT VERBALIZED UNDERSTANDING. SEBASTIAN CATH IN PLACE AND DRAINING WELL. SEBASTIAN CATH AND LEFT HAND G#22 NOT REMOVED PER FACILITY'S REQUEST. NAME BAND REMOVED. TELE MONITOR REMOVED BY RAKESH PENA AND TELE BOX GIVEN TO THE MOISTURE METER READERRANJITH VIRK. PT'S TELE CARDIAC READING PRIOR TO REMOVAL WAS AFIB CONTROLLED, HR 90. NO C/O CARDIAC DISTRESS VOICED OUT. REPORT GIVEN EARLIER TO JULIA WHITE OF [facility]. PT LEFT THE UNIT AT 1530 VIA GURNEY ACCOMPANIED BY 2 MACHINE VENEER REPAIRER VIA AMBULANCE. MD AND CHARGED NURSE AWARE OF DISCHARGED.
== END 2022-03-15 15:51 | DRG 309 ==
LOC: ER 11:49 → ICU 18:21 → MED 03-11 18:35 → TELE 03-11 21:01
PROVIDERS: ADMIT Internal Medicine; ATTEND Internal Medicine
PROC: 5A2204Z Restoration of Cardiac Rhythm, Single (ICD-10-PCS; principal; 2022-03-09)
PROC: 05HB33Z Insertion of Infusion Device into Right Basilic Vein, Percutaneous Approach (ICD-10-PCS; 2022-03-11)
DX: I47.1 Supraventricular tachycardia (principal); E44.0 Moderate protein-calorie malnutrition; S32.10XA Unspecified fracture of sacrum, initial encounter for closed fracture; F03.93 Unspecified dementia, unspecified severity, with mood disturbance; F03.94 Unspecified dementia, unspecified severity, with anxiety; N39.0 Urinary tract infection, site not specified; J81.1 Chronic pulmonary edema; E11.65 Type 2 diabetes mellitus with hyperglycemia; I25.10 Atherosclerotic heart disease of native coronary artery without angina pectoris; Z20.822 Contact with and (suspected) exposure to COVID-19; W01.0XXA Fall on same level from slipping, tripping and stumbling without subsequent striking against object, initial encounter; Y92.002 Bathroom of unspecified non-institutional (private) residence as the place of occurrence of the external cause; Z91.199 Patient's noncompliance with other medical treatment and regimen due to unspecified reason; Z91.14 Patient's other noncompliance with medication regimen; I10 Essential (primary) hypertension; Z88.1 Allergy status to other antibiotic agents; Z79.82 Long term (current) use of aspirin; Z79.84 Long term (current) use of oral hypoglycemic drugs; Z79.899 Other long term (current) drug therapy; I25.2 Old myocardial infarction; Z95.5 Presence of coronary angioplasty implant and graft; Z91.81 History of falling; Z87.891 Personal history of nicotine dependence; Z86.73 Personal history of transient ischemic attack (TIA), and cerebral infarction without residual deficits; Z79.01 Long term (current) use of anticoagulants; I27.20 Pulmonary hypertension, unspecified; J44.9 Chronic obstructive pulmonary disease, unspecified; E78.5 Hyperlipidemia, unspecified; E86.0 Dehydration; I07.1 Rheumatic tricuspid insufficiency; E87.6 Hypokalemia; I48.19 Other persistent atrial fibrillation; K59.00 Constipation, unspecified; D63.8 Anemia in other chronic diseases classified elsewhere; D50.9 Iron deficiency anemia, unspecified; K57.30 Diverticulosis of large intestine without perforation or abscess without bleeding; F32.A Depression, unspecified
CPT/HCPCS: 36415; 70450-TC; 71045-TC; 72170-TC; 72192-TC; 73552; 73564-TC; 80048-TC; 80053-TC; 80061-TC; 80076-TC; 81001; 82607-TC; 82962-TC; 83540-TC; 83735-TC; 83880; 84443-TC; 84484-TC; 85025-TC; 85730-TC; 86850-TC; 87081-TC; 87086-TC; 92526; 92611-TC; 93307-TC; 93970-TC; 94799-TC; 97116-TC; 97530-TC; C9803; G0378; J0153; J0282; J0696; J1160; J1815; J1940; J2060; J2270; J3490; J7030; J7050; J7060

== ENCOUNTER 2023-11-13 10:26 | Inpatient (IN) | payer MEDICARE, OTHER ==
[~2023-11-13] VITALS: Ht 162.6 cm; Wt 576.5 kg
[~2023-11-13 10:26] MED LIST changes: +ASPI-1420 PO; +METO50TA16 PO
[2023-11-13] MEDS ORDERED: ALBUTEROL FS 2.5 MG/3 ML VIAL.NEB ONE (10:51)
[2023-11-13] MEDS ORDERED: IPRATROPIUM NEB FS 0.5 MG/2.5 ML AMPUL.NEB ONE (10:51)
[2023-11-13] MEDS ORDERED: methylPREDNISolone SOD SUCC 125 MG/2ML VIAL ONE (10:56)
[2023-11-13] MEDS: methylPREDNISolone SOD SUCC 125 MG/2ML VIAL IV ONE (11:00)
[2023-11-13] MEDS: ALBUTEROL FS 2.5 MG/3 ML VIAL.NEB CONTNEB ONE (11:21)
[2023-11-13] MEDS: IPRATROPIUM NEB FS 0.5 MG/2.5 ML AMPUL.NEB NEB ONE (11:21)
[2023-11-13 11:22] VITALS: O2SAT 98
[2023-11-13 11:37] LABS: EOSINOPHILS # (AUTO) 0.1 K/uL (0.0-0.7); EOSINOPHILS % (AUTO) 1.4 % (0.0-6.0); HEMATOCRIT 34 % (33-45); LYMPHOCYTES # (AUTO) 0.2 K/uL (0.8-4.8); LYMPHOCYTES % (AUTO) 4.3 % (20.0-44.0); MEAN CORPUSCULAR HEMOGLOBIN 31 PG (26.0-33.0); MEAN CORPUSCULAR HGB CONC 33 g/dl (31.0-36.0); MEAN CORPUSCULAR VOLUME 94 fL (82-100); MONOCYTES # (AUTO) 0.6 K/uL (0.1-1.30); MONOCYTES % (AUTO) 10.1 % (2.0-12.0); NEUTROPHILS # (AUTO) 4.6 K/uL (1.8-8.9); NEUTROPHILS % (AUTO) 84.2 % (43.0-81.0); PLATELET COUNT (AUTO) 190 K/uL (150-450); RED BLOOD CELL COUNT(AUTO) 3.57 MIL/uL (4.0-5.2); RED CELL DISTRIBUTION WIDTH 15.8 % (11.5-15.0); WHITE BLOOD COUNT (AUTO) 5.5 K/uL (4.3-11.0)
[2023-11-13 11:47] VITALS: O2SAT 100
[2023-11-13 11:53] LABS: CARBON DIOXIDE 26 mmol/L (21-32); CHLORIDE 105 mmol/L (98-107); CREATININE 0.9 mg/dL (0.6-1.3); GLUCOSE 167 mg/dL (74-106); POTASSIUM 4.1 mmol/L (3.5-5.1); SODIUM SERUM 139 mmol/L (136-145); UREA NITROGEN, BLOOD 20 mg/dL (7-18)
[2023-11-13] MEDS ORDERED: ACET-73 PO (11:54)
[2023-11-13] MEDS ORDERED: APIX2.5T PO (11:54)
[2023-11-13] MEDS ORDERED: ESCI10TA PO (11:54)
[2023-11-13] MEDS ORDERED: FAMO20TA8 PO (11:54)
[2023-11-13] MEDS ORDERED: QUET50TA PO (11:54)
[2023-11-13] MEDS ORDERED: METF-440 PO (11:54)
[2023-11-13] MEDS ORDERED: QUET25TA PO (11:54)
[2023-11-13] MEDS ORDERED: LOSA100T31 PO (11:54)
[2023-11-13] MEDS ORDERED: METO100T14 PO (11:54)
[2023-11-13 12:06] LABS: ALANINE AMINOTRANSFERASE 30 U/L (12-78); ALKALINE PHOSPHATASE 111 U/L (46-116); ASPARTATE AMINOTRANSFERASE 19 U/L (15-37); BILIRUBIN,DIRECT 0.3 mg/dL (0.0-0.2); BILIRUBIN,TOTAL 0.8 mg/dL (0.2-1.0); NT-PRO BNP 7033 pg/mL (0-125); TOTAL PROTEIN, SERUM 7.5 g/dL (6.4-8.2)
[2023-11-13] MEDS ORDERED: FUROSEMIDE 40 MG/4 ML VIAL ONE (13:39)
[2023-11-13] MEDS: FUROSEMIDE 40 MG/4 ML VIAL IV ONE (14:42)
[2023-11-13] MEDS ORDERED: IV NS 0.9% 250 ML IV ONE (15:11)
[2023-11-13] MEDS ORDERED: IOHEXOL-350 100 ML VIAL IV ONE (15:11)
[2023-11-13] MEDS ORDERED: DEXTROSE 50%-WATER 50 ML DISP.SYRIN IV PRN (19:30)
[2023-11-13] MEDS ORDERED: Z GUARD REMEDY 4 OZ OINT TP PRN (19:30)
[2023-11-13] MEDS ORDERED: MAGNESIUM HYDROXIDE 30 ML UDC PO PRN (19:30)
[2023-11-13] MEDS ORDERED: ONDANSETRON HCL/PF 4 MG/2 ML VIAL IVP PRN (19:30)
[2023-11-13] MEDS ORDERED: MAG HYDROX/AL HYDROX/SIMETH 30 ML UDC PO PRN (19:30)
[2023-11-13] MEDS ORDERED: ACETAMINOPHEN 325 MG TABLET PO PRN (19:30)
[2023-11-13 20:00] VITALS: BP 167/112; TEMP 97.7; O2SAT 93
[2023-11-13] MEDS ORDERED: CLONIDINE HCL 0.1 MG TABLET PO PRN (20:00)
[2023-11-13] MEDS: BLOOD SUGAR DIAGNOSTIC 1 EACH STRIP VI SCH (22:23)
[2023-11-13] MEDS: *INSULIN REGULAR(HUMULIN R)HUM 100 UNIT/ML VIAL SQ PRN (22:46)
[2023-11-14] VITALS: BP 134/96; TEMP 97.5; O2SAT 89
[2023-11-14 06:51] LABS: BASOPHILS % (AUTO) 0.1 % (0.0-2.0); EOSINOPHILS % (AUTO) 0.1 % (0.0-6.0); HEMATOCRIT 33 % (33-45); HEMOGLOBIN 11.2 g/dL (11.5-14.8); LYMPHOCYTES # (AUTO) 0.7 K/uL (0.8-4.8); LYMPHOCYTES % (AUTO) 8.5 % (20.0-44.0); MEAN CORPUSCULAR HEMOGLOBIN 31 PG (26.0-33.0); MEAN CORPUSCULAR HGB CONC 34 g/dl (31.0-36.0); MEAN CORPUSCULAR VOLUME 93 fL (82-100); MONOCYTES # (AUTO) 0.7 K/uL (0.1-1.30); MONOCYTES % (AUTO) 8.3 % (2.0-12.0); NEUTROPHILS # (AUTO) 6.7 K/uL (1.8-8.9); PLATELET COUNT (AUTO) 190 K/uL (150-450); RED BLOOD CELL COUNT(AUTO) 3.58 MIL/uL (4.0-5.2); RED CELL DISTRIBUTION WIDTH 15.5 % (11.5-15.0); WHITE BLOOD COUNT (AUTO) 8.1 K/uL (4.3-11.0)
[2023-11-14 07:11] LABS: CALCIUM, SERUM 9.7 mg/dL (8.5-10.1); CARBON DIOXIDE 19 mmol/L (21-32); CHLORIDE 102 mmol/L (98-107); CREATININE 1.1 mg/dL (0.6-1.3); GLUCOSE 301 mg/dL (74-106); MAGNESIUM 2.2 mg/dL (1.8-2.4); PHOSPHORUS 3.4 mg/dL (2.5-4.9); POTASSIUM 4.2 mmol/L (3.5-5.1); SODIUM SERUM 136 mmol/L (136-145); UREA NITROGEN, BLOOD 29 mg/dL (7-18)
[2023-11-14 08:00] VITALS: BP 161/92; TEMP 98.1; O2SAT 92
[2023-11-14] MEDS ORDERED: FUROSEMIDE 40 MG/4 ML VIAL IV SCH (09:00)
[2023-11-14 12:00] VITALS: BP 152/69; TEMP 98.1; O2SAT 94
[2023-11-14] MEDS ORDERED: FUROSEMIDE 40 MG TABLET PO SCH (13:00)
[2023-11-14] MEDS: INSULIN REGULAR, HUMAN 100 UNIT/ML 3 ML VIAL SQ PRN (13:24)
[2023-11-14] MEDS: FUROSEMIDE 20 MG/2 ML VIAL IV SCH (14:00)
[2023-11-14 16:00] VITALS: BP 142/89; TEMP 97.2; O2SAT 96
[2023-11-14] MEDS ORDERED: ACETAMINOPHEN ES 500 MG TABLET PO PRN (16:30)
[2023-11-14] MEDS: METFORMIN 500 MG TABLET PO SCH (16:57)
[2023-11-14] MEDS: ESCITALOPRAM OXALATE (10 MG) 10 MG TABLET PO SCH (16:58)
[2023-11-14] MEDS: LOSARTAN POTASSIUM 50 MG TABLET PO SCH (16:58)
[2023-11-14] MEDS: APIXABAN 2.5 MG TABLET PO SCH (16:59)
[2023-11-14 20:11] VITALS: BP 149/74; TEMP 98.2; O2SAT 94
[2023-11-14] MEDS: QUETIAPINE FUMARATE 25 MG TABLET PO SCH (21:11)
[2023-11-14] MEDS: METOPROLOL TARTRATE 25 MG TABLET PO SCH (21:11)
[2023-11-15] VITALS: BP 141/71; TEMP 98.2; O2SAT 94
[2023-11-15 00:16] VITALS: BP 141/71; TEMP 98.2; O2SAT 94
[2023-11-15 04:15] VITALS: BP 149/78; TEMP 98.6; O2SAT 94
[2023-11-15] MEDS: FAMOTIDINE (20 MG) 20 MG TABLET PO SCH (07:38)
[2023-11-15 08:01] VITALS: BP 161/80; TEMP 98.2; O2SAT 94
[2023-11-15 11:03] LABS: BASOPHILS % (AUTO) 0.9 % (0.0-2.0); EOSINOPHILS % (AUTO) 1.1 % (0.0-6.0); HEMATOCRIT 35 % (33-45); HEMOGLOBIN 11.5 g/dL (11.5-14.8); LYMPHOCYTES % (AUTO) 13.9 % (20.0-44.0); MEAN CORPUSCULAR HEMOGLOBIN 31 PG (26.0-33.0); MEAN CORPUSCULAR HGB CONC 33 g/dl (31.0-36.0); MEAN CORPUSCULAR VOLUME 95 fL (82-100); MONOCYTES # (AUTO) 0.6 K/uL (0.1-1.30); MONOCYTES % (AUTO) 8.9 % (2.0-12.0); NEUTROPHILS # (AUTO) 5.2 K/uL (1.8-8.9); NEUTROPHILS % (AUTO) 75.2 % (43.0-81.0); PLATELET COUNT (AUTO) 195 K/uL (150-450); RED BLOOD CELL COUNT(AUTO) 3.68 MIL/uL (4.0-5.2); RED CELL DISTRIBUTION WIDTH 16.1 % (11.5-15.0); WHITE BLOOD COUNT (AUTO) 6.9 K/uL (4.3-11.0)
[2023-11-15 11:04] LABS: BASOPHILS # (AUTO) 0.1 K/uL (0.0-0.2); EOSINOPHILS # (AUTO) 0.1 K/uL (0.0-0.7)
[2023-11-15 11:21] LABS: ALANINE AMINOTRANSFERASE 31 U/L (12-78); ALBUMIN 2.9 g/dL (3.4-5.0); ALKALINE PHOSPHATASE 109 U/L (46-116); ASPARTATE AMINOTRANSFERASE 21 U/L (15-37); BILIRUBIN,TOTAL 0.9 mg/dL (0.2-1.0); CALCIUM, SERUM 8.8 mg/dL (8.5-10.1); CHLORIDE 102 mmol/L (98-107); CREATININE 1.1 mg/dL (0.6-1.3); GLUCOSE 168 mg/dL (74-106); POTASSIUM 3.7 mmol/L (3.5-5.1); SODIUM SERUM 135 mmol/L (136-145); TOTAL PROTEIN, SERUM 7.4 g/dL (6.4-8.2); UREA NITROGEN, BLOOD 25 mg/dL (7-18)
[2023-11-15 11:30] LABS: CARBON DIOXIDE 23 mmol/L (21-32)
[2023-11-15 16:05] VITALS: BP 140/80; TEMP 97.9; O2SAT 92
[2023-11-15 20:00] VITALS: BP 153/84; TEMP 97.5; O2SAT 96
[2023-11-16 10:08] LABS: BASOPHILS # (AUTO) 0.1 K/uL (0.0-0.2); BASOPHILS % (AUTO) 0.9 % (0.0-2.0); EOSINOPHILS # (AUTO) 0.1 K/uL (0.0-0.7); EOSINOPHILS % (AUTO) 1.7 % (0.0-6.0); HEMATOCRIT 37 % (33-45); HEMOGLOBIN 12.4 g/dL (11.5-14.8); LYMPHOCYTES % (AUTO) 16.3 % (20.0-44.0); MEAN CORPUSCULAR HEMOGLOBIN 31 PG (26.0-33.0); MEAN CORPUSCULAR HGB CONC 33 g/dl (31.0-36.0); MEAN CORPUSCULAR VOLUME 92 fL (82-100); MONOCYTES # (AUTO) 0.6 K/uL (0.1-1.30); MONOCYTES % (AUTO) 9.2 % (2.0-12.0); NEUTROPHILS # (AUTO) 4.4 K/uL (1.8-8.9); NEUTROPHILS % (AUTO) 71.9 % (43.0-81.0); PLATELET COUNT (AUTO) 212 K/uL (150-450); RED BLOOD CELL COUNT(AUTO) 4.06 MIL/uL (4.0-5.2); RED CELL DISTRIBUTION WIDTH 15.2 % (11.5-15.0); WHITE BLOOD COUNT (AUTO) 6.1 K/uL (4.3-11.0)
[2023-11-16 10:23] LABS: ALANINE AMINOTRANSFERASE 22 U/L (12-78); ALBUMIN 2.9 g/dL (3.4-5.0); ALKALINE PHOSPHATASE 101 U/L (46-116); ASPARTATE AMINOTRANSFERASE 13 U/L (15-37); CALCIUM, SERUM 8.8 mg/dL (8.5-10.1); CARBON DIOXIDE 31 mmol/L (21-32); CHLORIDE 100 mmol/L (98-107); GLUCOSE 169 mg/dL (74-106); PHOSPHORUS 3.4 mg/dL (2.5-4.9); POTASSIUM 3.8 mmol/L (3.5-5.1); SODIUM SERUM 137 mmol/L (136-145); TOTAL PROTEIN, SERUM 7.3 g/dL (6.4-8.2); UREA NITROGEN, BLOOD 21 mg/dL (7-18)
[2023-11-16 10:30] VITALS: O2SAT 95
[2023-11-16] MEDS ORDERED: FURO-145 PO (14:44)
[2023-11-16 16:00] VITALS: BP 122/59; TEMP 98.1; O2SAT 95
== END 2023-11-16 16:15 | DRG 291 ==
LOC: ER 11:04 → TELE 15:10 → MED 11-15 10:31
PROVIDERS: ADMIT Internal Medicine
DX: I11.0 Hypertensive heart disease with heart failure (principal); E43 Unspecified severe protein-calorie malnutrition; G93.41 Metabolic encephalopathy; J96.01 Acute respiratory failure with hypoxia; I50.43 Acute on chronic combined systolic (congestive) and diastolic (congestive) heart failure; J90 Pleural effusion, not elsewhere classified; I47.10 Supraventricular tachycardia, unspecified; Z95.0 Presence of cardiac pacemaker; Z95.5 Presence of coronary angioplasty implant and graft; E11.9 Type 2 diabetes mellitus without complications; F03.90 Unspecified dementia, unspecified severity, without behavioral disturbance, psychotic disturbance, mood disturbance, and anxiety; Z88.1 Allergy status to other antibiotic agents; Z79.01 Long term (current) use of anticoagulants; Z79.84 Long term (current) use of oral hypoglycemic drugs; Z79.899 Other long term (current) drug therapy; I25.10 Atherosclerotic heart disease of native coronary artery without angina pectoris; Z87.81 Personal history of (healed) traumatic fracture; E88.09 Other disorders of plasma-protein metabolism, not elsewhere classified; I48.0 Paroxysmal atrial fibrillation; Z53.20 Procedure and treatment not carried out because of patient's decision for unspecified reasons; R79.89 Other specified abnormal findings of blood chemistry
CPT/HCPCS: 36415; 36600; 71045-TC; 80048-TC; 80053-TC; 80076-TC; 82803-TC; 82962-TC; 83735-TC; 83880; 84100-TC; 84484-TC; 85025-TC; 85378-TC; 87081-TC; 93307-TC; G0378; J1815; J1940; J2919; J7050; Q9967